=== PATIENT | female | born 1965 | race Caucasian/White ===

== ENCOUNTER 2018-06-07 15:49 | Outpatient (CLI) | payer MEDICAID ==
[~2018-06-07 15:49] MED LIST: ALBU18HF INH; FLUT9.9S INH; GABA300C10 PO; HYDR25TA6 PO; LEVO75TA5 PO; MELO15TA6 PO; ZONI25CA2 PO
[2018-06-07] MEDS ORDERED: CRANBERRY PO (16:35)
[2018-06-07] MEDS ORDERED: BEE550CA PO (16:35)
[2018-06-07] MEDS ORDERED: [UNRECOGNIZED DRUG - CODE] VG (16:35)
[2018-06-07] MEDS ORDERED: UBID100C24 PO (16:35)
[2018-06-07 16:41] LABS: BASOPHILS # (AUTO) 0.04 x10^3/uL (0-0.1); BASOPHILS % (AUTO) 1 % (0-1); EOSINOPHILS # (AUTO) 0.14 x10^3/uL (0-0.4); EOSINOPHILS % (AUTO) 2 % (1-7); LYMPHOCYTES # (AUTO) 1.73 x10^3/uL (1-3.4); LYMPHOCYTES % (AUTO) 25 % (22-44); MD NO; MEAN CORPUSCULAR HEMOGLOBIN 28.4 pg (27.0-34.8); MEAN CORPUSCULAR HGB CONC 33.4 g/dL (32.4-35.8); MEAN CORPUSCULAR VOLUME 85.1 fL (80-100); MEAN PLATELET VOLUME 9.4 fL (7.4-10.4); MONOCYTES # (AUTO) 0.56 x10^3/uL (0.2-0.8); MONOCYTES % (AUTO) 8 % (2-9); NEUTROPHILS # (AUTO) 4.35 x10^3/uL (1.8-6.8); NEUTROPHILS % (AUTO) 64 % (42-75); PLATELET COUNT 241 x10^3/uL (130-400); RED BLOOD COUNT 5.34 x10^6/uL (3.82-5.3); RED CELL DISTRIBUTION WIDTH 14.4 % (9.6-15.2)
[2018-06-07 16:52] LABS: ANION GAP 3 mmol/L (5-15); CALCIUM 9.6 mg/dL (8.5-10.1); CHLORIDE 108 mmol/L (98-107)
[2018-06-07 16:56] LABS: ALANINE AMINOTRANSFERASE 33 U/L (12-78); ALKALINE PHOSPHATASE 91 U/L (45-117); BILIRUBIN,TOTAL 0.8 mg/dL (0.2-1.0); CREATININE 0.79 mg/dL (0.55-1.02); TOTAL PROTEIN 7.7 g/dL (6.4-8.2)
== END 2018-06-07 23:59 | disposition home or self-care (01) ==
LOC: STAR 15:49
PROVIDERS: ATTEND Student in an Organized Health Care Education/Training Program
DX: Z01.818 Encounter for other preprocedural examination (principal); N20.0 Calculus of kidney
CPT/HCPCS: 36415; 80048; 80053; 85025

== ENCOUNTER 2018-06-16 11:16 | Day surgery (SDC) | payer MEDICAID, OTHER ==
[~2018-06-16] VITALS: Ht 172.7 cm; Wt 102.1 kg
[~2018-06-16 11:16] MED LIST changes: +BEE550CA PO; +CRANBERRY PO; +UBID100C24 PO; +[UNRECOGNIZED DRUG - CODE] VG
[2018-06-16 11:54] VITALS: BP 144/93
[2018-06-16] MEDS ORDERED: LACTATED RINGERS 1,000 ML IV SCH (11:58)
[2018-06-16] MEDS ORDERED: MIDAZOLAM 1 MG/ML, 2ML ONE (13:21)
[2018-06-16] MEDS ORDERED: FENTANYL PF 100 MCG/2ML ONE ×2 (13:22→15:22)
[2018-06-16] MEDS ORDERED: APREPITANT 40 MG CAPSULE PO ONE (13:30)
[2018-06-16] MEDS ORDERED: SUCCINYLCHOLINE 20 MG/ML, 10ML ONE (13:41)
[2018-06-16] MEDS ORDERED: CEFAZOLIN 1,000 MG ONE (13:41)
[2018-06-16] MEDS ORDERED: ROCURONIUM 10MG/ML,5ML ONE (13:41)
[2018-06-16] MEDS ORDERED: PROPOFOL 10 MG/ML, 20ML ONE (13:41)
[2018-06-16] MEDS ORDERED: ONDANSETRON 2MG/ML, 2ML ONE (13:41)
[2018-06-16] MEDS ORDERED: DEXAMETHASONE 4 MG/ML, 1ML ONE (13:41)
[2018-06-16] MEDS ORDERED: CLINDAMYCIN 150 MG/ML, 6ML ONE (13:53)
[2018-06-16] MEDS ORDERED: SUGAMMADEX 200 MG/2 ML IVPush ONE ×2 (14:15→14:26)
[2018-06-16] MEDS ORDERED: OXYcodone 5 MG/5 ML ORAL.SOL UDC PO PRN (14:30)
[2018-06-16] MEDS ORDERED: KETOROLAC 30 MG/1 ML IV PRN (14:30)
[2018-06-16] MEDS ORDERED: HYDROmorphone 2 MG/ML, 1ML IVPush PRN (14:30)
[2018-06-16] MEDS ORDERED: MORPHINE SULFATE 4 MG/ML, 1ML IVPush PRN (14:30)
[2018-06-16] MEDS ORDERED: KETOROLAC 30 MG/1 ML IM PRN ×2 (14:30)
[2018-06-16] MEDS ORDERED: HYDROcodone/APAP 7.5-325MG/15ML UDC PO PRN (14:30)
[2018-06-16] MEDS ORDERED: ACETAMINOPHEN 325 MG TABLET PO PRN (14:30)
[2018-06-16] MEDS ORDERED: OXYcodone 5 MG/5 ML ORAL.SOL UDC ONE (14:58)
[2018-06-16] MEDS ORDERED: PHENAZOPYRIDINE 200 MG TABLET ONE (15:06)
[2018-06-16] MEDS: FENTANYL PF 100 MCG/2ML IV PRN ×2 (15:11→15:24)
[2018-06-16] MEDS ORDERED: OPIUM/BELLADONNA SUPP.RECT 16.2-30 MG ONE (15:16)
[2018-06-16] MEDS ORDERED: KETOROLAC 30 MG/1 ML ONE (15:30)
[2018-06-16] MEDS ORDERED: OPIUM/BELLADONNA SUPP.RECT 16.2-30 MG PR ONE (15:30)
[2018-06-16] MEDS ORDERED: PHENAZOPYRIDINE 200 MG TABLET PO ONE (15:30)
[2018-06-16] MEDS ORDERED: MORPHINE SULFATE 4 MG/ML, 1ML ONE (15:35)
== END 2018-06-16 18:50 | disposition home or self-care (01) ==
LOC: OUT 11:16
PROVIDERS: ATTEND Student in an Organized Health Care Education/Training Program
DX: N20.0 Calculus of kidney (principal); I10 Essential (primary) hypertension; E66.01 Morbid (severe) obesity due to excess calories; Z68.41 Body mass index [BMI] 40.0-44.9, adult; Z88.1 Allergy status to other antibiotic agents; Z88.8 Allergy status to other drugs, medicaments and biological substances
CPT/HCPCS: 52356; 74018; 76000; 82360; 88300; C1758; C1769; C2617; J0330; J0690; J1100; J1885; J2250; J2405; J2704; J3010; J7120; J8501

== ENCOUNTER 2018-10-21 11:05 | Observation (INO) | payer MEDICAID ==
[~2018-10-21] VITALS: Ht 172.7 cm; Wt 104.0 kg
[2018-10-23 07:23] VITALS: BP 132/87
== END 2018-10-23 12:20 | disposition home or self-care (01) ==
LOC: ED 13:36 → EDIP 13:37 → INTOOBSV 13:37 → ED 13:42 → 5SO 17:00 → DCLOUNGE 10-23 12:05
PROVIDERS: ADMIT Family Medicine; ATTEND Family Medicine
DX: R07.89 Other chest pain (principal); I49.3 Ventricular premature depolarization; I10 Essential (primary) hypertension; E03.9 Hypothyroidism, unspecified; G62.9 Polyneuropathy, unspecified; G25.0 Essential tremor; E78.5 Hyperlipidemia, unspecified; Z68.35 Body mass index [BMI] 35.0-35.9, adult; Z90.710 Acquired absence of both cervix and uterus; Z82.5 Family history of asthma and other chronic lower respiratory diseases; Z82.49 Family history of ischemic heart disease and other diseases of the circulatory system
CPT/HCPCS: 36415; 71045; 78452; 80053; 80061; 81001; 84443; 84484; 84703; 85025; 87086; 93005; 93017; 93306; 99284; A9502; C9898; G0378; J2785; J7120